=== PATIENT | male | born 1990 | race Caucasian/White ===

== ENCOUNTER 2017-03-08 19:47 | Emergency (ER) | payer BC ==
[2017-03-08] MEDS ORDERED: Ketorolac 60 MG/2 ML SDV IM ONE (20:09)
[2017-03-08] MEDS ORDERED: traMADol 50 MG Tab PO ONE (20:22)
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
== END 2017-03-08 22:10 | disposition home or self-care (01) ==
LOC: MW.ED 19:47
DX: S40.011A Contusion of right shoulder, initial encounter (principal); V86.56XA Driver of dirt bike or motor/cross bike injured in nontraffic accident, initial encounter
CPT/HCPCS: 73030; 73502; 81001; 99283; A9270

== ENCOUNTER 2017-03-19 14:49 | Emergency (ER) | payer BC ==
[2017-03-19] MEDS ORDERED: Ketorolac 60 MG/2 ML SDV IM ONE (15:17)
--- NOTE | 2017-03-19 15:17 | EDM.PDOC ---
ED HPI GENERAL MEDICAL PROBLEM - General Chief Complaint: Upper Extremity Injury/Pain Stated Complaint: CHEST PAIN/PAIN RT ARM/TROUBLE BREATHING Time Seen by Provider: 03/19/17 14:51 Source of Information: Reports: Patient History Limitations: Reports: No Limitations - History of Present Illness INITIAL COMMENTS - FREE TEXT/NARRATIVE: History of present illness: []Patient coughed hard approximately 20 minutes ago and had sudden severe anterior mid chest pain that worsens when he lifts his right arm as radiation of his pain to the back of his right arm. He denies having any shortness of breath but has been taking short shallow breaths because of pain Review of systems: As per history of present illness and below otherwise all systems reviewed and negative. Past medical history: As per history of present illness and as reviewed below otherwise noncontributory. Surgical history: As per history of present illness and as reviewed below otherwise noncontributory. Social history: No reported history of drug or alcohol abuse. Family history: As per history of present illness and as reviewed below otherwise noncontributory. Physical exam: General: Well developed, well nourished in NAD HEENT: Atraumatic, normocephalic, pupils reactive, negative for conjunctival pallor or scleral icterus, mucous membranes moist, throat clear, neck supple, nontender, trachea midline. Lungs: Clear to auscultation, breath sounds equal bilaterally, chest nontender. Heart: S1S2, regular, negative for clicks, rubs, or JVD. Abdomen: Soft, nondistended, nontender. Negative for masses or hepatosplenomegaly. Negative for costovertebral tenderness. Pelvis: Stable nontender. Genitourinary: Deferred. Rectal: Deferred. Extremities: Atraumatic, negative for cords or calf pain. Neurovascular unremarkable. Neuro: Awake, alert, oriented. Cranial nerves II through XII unremarkable. Cerebellum unremarkable. Motor and sensory unremarkable throughout. Exam nonfocal. Diagnostics: []Chest x-ray unremarkable Therapeutics: []Toradol ordered IM patient refused Impression: []Chest wall pain Plan: []Ibuprofen ice follow-up with PMD Definitive disposition and diagnosis as appropriate pending reevaluation and review of above. Right Chest Pain Score (Numeric/FACES): 2 - Related Data Allergies Allergy/AdvReac Type Severity Reaction Status Date / Time No Known Allergies Allergy Verified 03/19/17 15:12 Home Meds: Home Meds . [No Known Home Meds] 03/08/17 [History] Past Medical History - Infectious Disease History Infectious Disease History: Reports: Chicken Pox - Past Surgical History HEENT Surgical History: Reports: Adenoidectomy, Tonsillectomy Social & Family History - Family History Family Medical History: Noncontributory - Tobacco Use Smoking Status *Q: Never Smoker Second Hand Smoke Exposure: No - Caffeine Use Caffeine Use: Reports: None - Recreational Drug Use Recreational Drug Use: No Review of Systems - Review of Systems Review Of Systems: See Below (See history of present illness) ED EXAM, GENERAL - Physical Exam Exam: See Below (See history of present illness) Course - Vital Signs Last Recorded V/S: Last Vital Signs Temp 36.4 C 03/19/17 15:09 Pulse 99 03/19/17 15:09 Resp 16 03/19/17 15:09 BP 133/86 03/19/17 15:09 Pulse Ox - Orders/Labs/Meds Meds: Medications Discontinued Medications Generic Name Dose Route Start Last Admin Trade Name Kaitlynn PRN Reason Stop Dose Admin Ketorolac Tromethamine 60 mg 03/19/17 15:17 Toradol IM 03/19/17 15:18 ONETIME ONE Departure - Departure Time of Disposition: 15:57 Disposition: Home, Self-Care 01 Condition: Good Clinical Impression: Chest wall pain - Discharge Information Referrals: PCP,None [Primary Care Provider] - Forms: ED Department Discharge Additional Instructions: The following information is given to patients seen in the emergency department who are being discharged to home. This information is to outline your options for follow-up care. We provide all patients seen in our emergency department with a follow-up referral. The need for follow-up, as well as the timing and circumstances, are variable depending upon the specifics of your emergency department visit. If you don't have a primary care physician on staff, we will provide you with a referral. We always advise you to contact your personal physician following an emergency department visit to inform them of the circumstance of the visit and for follow-up with them and/or the need for any referrals to a consulting specialist. The emergency department will also refer you to a specialist when appropriate. This referral assures that you have the opportunity for follow-up care with a specialist. All of these measure are taken in an effort to provide you with optimal care, which includes your follow-up. Under all circumstances we always encourage you to contact your private physician who remains a resource for coordinating your care. When calling for follow-up care, please make the office aware that this follow-up is from your recent emergency room visit. If for any reason you are refused follow-up, please contact the [facility] Emergency Department at and asked to speak to the emergency department charge nurse. Use ibuprofen, ice and current medications follow-up with primary care physician return to ER immediately for any shortness of breath occurs [facility] [address] [place] [id number]
--- NOTE | 2017-03-19 15:49 | CR ---
EXAMINATION: Two-view chest (PA and Lateral views). HISTORY: Pain. FINDINGS: The trachea is midline. The cardiomediastinal silhouette is within normal limits. The lung volumes wi th mild bibasilar atelectasis. No pulmonary infiltrates, effusions or pneumothorax. Osseous structures appear unremarkable. IMPRESSION: No acute cardiopulmonary process.
== END 2017-03-19 16:10 | disposition home or self-care (01) ==
LOC: MW.ED 14:49
DX: R07.89 Other chest pain (principal)
CPT/HCPCS: 71020; 71020-26; 99283